=== PATIENT | female | born 1940 | race Hispanic/Latino ===

== ENCOUNTER → 2024-04-30 | Outpatient (CLI) | payer OTHER ==
[~2024-04-30] MED LIST: AEC81 PO; ATOR10 PO; CALCIUM CITRATE PO; IOHEXOL 350 MG/ML 100ML INFUS..BTL IV ONE; IRBE150T51 PO; METF-444 PO; METF-446 PO; METO25TA6 PO; NITR0.4T SL; metoPROLOL tartRATE 1 MG/ML 5ML VIAL IV ONE
== END | disposition home or self-care (01) ==
LOC: RAH 07:37
PROVIDERS: ATTEND Student in an Organized Health Care Education/Training Program
DX: I25.10 Atherosclerotic heart disease of native coronary artery without angina pectoris (principal); R55 Syncope and collapse; M47.815 Spondylosis without myelopathy or radiculopathy, thoracolumbar region
CPT/HCPCS: 75574; J3490 ×2; Q9967